=== PATIENT | male | born 1970 | race African-American/Black ===

== ENCOUNTER 2020-04-04 19:10 | Emergency (ER) | payer MEDICAID ==
[~2020-04-04] VITALS: Ht 172.7 cm; Wt 76.0 kg
[2020-04-04] MEDS ORDERED: HYDROCODONE/ACETAMINOPHEN 5/325MG TABLET PO ONE (21:00)
[2020-04-04] MEDS ORDERED: KETOROLAC 60MG/2ML VIAL IM ONE (21:00)
[2020-04-04] MEDS: METHOCARBAMOL 750MG TABLET PO SCH ×2 (21:28→21:30)
[2020-04-04 23:30] VITALS: BP 135/80
== END 2020-04-05 00:08 | disposition home or self-care (01) ==
LOC: ER 19:10
DX: S70.02XA Contusion of left hip, initial encounter (principal); S20.219A Contusion of unspecified front wall of thorax, initial encounter; V49.60XA Unspecified car occupant injured in collision with unspecified motor vehicles in traffic accident, initial encounter; Y93.89 Activity, other specified; Y92.89 Other specified places as the place of occurrence of the external cause
CPT/HCPCS: 73502; 96372; 99283; J1885